=== PATIENT | female | born 1960 | race Caucasian/White ===

== ENCOUNTER 2016-08-26 15:59 | Emergency (ER) | payer OTHER ==
--- NOTE | ~2016-08-26 | EKG ---
PATIENT: CLARISA MEJIAS UNIT #: [id number] Ventricular Rate: 77 BPM Atrial Rate: 77 BPM P-R Interval: 182 ms QRS Duration: 100 ms Q-T Interval: 406 ms QTC Calculation(Bezet): 459 ms P Whitmer: 62 degrees Calculated R Whitmer: 62 degrees Calculated T Whitmer: 61 degrees Diagnosis Line: Normal sinus rhythm Diagnosis Line: Normal ECG Diagnosis Line: When compared with ECG of 24-AUG-2015 11:29, Diagnosis Line: No significant change was found Diagnosis Line: Confirmed by MIKA CLINE MD ([id number]) on 08/27/2016 Diagnosis Line: 7:20:15 AM INTERPRETING MD: SON CASTRO
--- NOTE | ~2016-08-26 | CR72 ---
[facility] A Service of [facility] RADIOLOGY TEXT RESULTS PATIENT: CLARISA MEJIAS LOCATION: [facility] : 64 UNIT #: [id number] AGE: [address]: Sandro Bear MD SEX: F ORDER DR: [id number] [facility] [address] [place], [place] [address] [id number] MR#: [id number] Acc #: [id number] NAME: CLARISA MEJIAS : 1960 SEX: F STUDY DATE/TIME: 08/26/2016 15:16 UNIT: [facility] ROOM: STUDY DESCRIPTION: CR Chest Single View Portable Attending Physician: Sandro Bear M.D. Ordering Physician: Sandro Bear M.D. Primary Care Physician: Generic Doctor Not In System MEDICAL IMAGING REPORT This report is preliminary unless electronic signature is present EXAM Single view of the chest dated 08/26/2016 at 1516 hours COMPARISON None. HISTORY Alcohol withdrawal, mild congestion today. Patient is somewhat incoherent. FINDINGS A single AP portable view of the chest shows both lungs to be clear. The heart is normal in size. The mediastinal contour is normal. No significant bone abnormalities are seen. IMPRESSION Normal portable chest. Dictated by... Flynn Soliman M.D. THIS IS AN ELECTRONICALLY VERIFIED REPORT Flynn Soliman M.D. at 08/28/2016 1:40 PM CPR/mjs TD: 08/27/2016 10:06 JOB #: [id number] MEDICAL IMAGING REPORT Page 1 of 1 COPY
[2016-08-26 15:28] LABS: POC - CKMB <1.0 ng/mL (0.0-7.9); POC - TROPONIN <0.05 ng/mL (<=0.05)
[2016-08-26 15:32] LABS: BASOPHIL% 0.8 % (0-2.5); EOSINOPHIL# 0.1 X10e3 (0-0.7); EOSINOPHIL% 2.4 % (0.0-7.0); HEMATOCRIT 39.7 % (35.0-45.0); HEMOGLOBIN 13.4 gm/dL (12.0-16.0); LYMPHOCYTE# 1.6 X10e3 (1.0-3.5); LYMPHOCYTE% 38.9 % (17.0-45.0); MEAN CELL VOLUME 95.9 FL (83-96); MEAN CORPUSCULAR HEMOGLOBIN 32.4 PG (28-34); MEAN CORPUSCULAR HGB CONC 33.7 g/dL (30-36); MEAN PLATELET VOLUME 7.5 FL (6.5-11.5); MONOCYTE# 0.2 X10e3 (0-1.0); MONOCYTE% 5.6 % (3.0-12.0); NEUTROPHIL# 2.1 X10e3 (1.5-7.1); NEUTROPHIL% 52.3 % (40-75); PLATELET COUNT 245 X10e3 (140-420); RED BLOOD COUNT 4.14 X10e (3.90-5.30); RED CELL DISTRIBUTION WIDTH 15.8 % (11.0-15.5); WHITE BLOOD COUNT 4.1 X10e3 (4.0-10.5)
[2016-08-26 15:33] LABS: DIFF IND NO
[2016-08-26 16:06] LABS: ALBUMIN SERUM 4.7 g/dL (3.5-5.0); ALKALINE PHOSPHATASE 72 U/L (32-92); ALT (SGPT) 24 U/L (10-40); AST (SGOT) 39 U/L (10-42); BILIRUBIN, DIRECT 0.1 mg/dL (0.0-0.2); BILIRUBIN,TOTAL 1.1 mg/dL (0.2-2.0); BLOOD UREA NITROGEN 8 mg/dL (9-23); CALCIUM SERUM 9.4 mg/dL (8.4-10.2); CARBON DIOXIDE 22 mmol/L (22-31); CHLORIDE 97 mmol/L (100-111); CREATININE SERUM 0.4 mg/dL (0.6-1.4); GLOM FILT RATE Estimated 118.9 mL/min (>60); GLUCOSE FASTING 86 mg/dL (70-110); POTASSIUM 3.8 mmol/L (3.5-5.1); SALICYLATE <4.0 mg/dL; SODIUM 133 mmol/L (135-145)
[2016-08-26 16:08] LABS: ACETAMINOPHEN <10 ug/mL
[2016-08-26 16:10] LABS: ALCOHOL BLOOD 360 mg/dL (0)
[2016-08-26 16:25] LABS: AMPHETAMINE NEG (NEG); BARBITURATES NEG (NEG); BENZODIAZEPINES NEG (NEG); COCAINE NEG (NEG); MARIJUANA NEG (NEG); OPIATES NEG (NEG); TRICYCLIC ANTIDEPRESSANTS NEG (NEG); U METHADONE NEG (NEG)
== END 2016-08-26 16:07 | disposition home or self-care (01) ==
LOC: CED 15:59
PROVIDERS: Emergency Medicine
DX: F10.20 Alcohol dependence, uncomplicated (principal); Y90.8 Blood alcohol level of 240 mg/100 ml or more
CPT/HCPCS: 36415; 71010; 80048; 80076; 80307; 82553; 84484; 84703; 85025; 93005; 99283; G0480; J3411; J3475

== ENCOUNTER 2016-11-30 13:00 | Inpatient (IN) | payer OTHER ==
[~2016-11-30] VITALS: Ht 167.6 cm; Wt 56.7 kg
--- NOTE | ~2016-11-30 | PA ---
Unit #: [id number] #: [id number] Patient: CLARISA MEJIAS [id number] [place] [address] [id number] MR#: [id number] NAME: CLARISA MEJIAS ROOM: P212 Age: 56 Sex: F Admission Date: 11/30/2016 : 1960 Date of Assessment: 12/01/2016 Attending Physician: Ajit Ballard M.D. Admitting Physician: Ajit Ballard M.D. Primary Care Physician: Nereida Ames M.D. PSYCHIATRIC ASSESSMENT IDENTIFYING INFORMATION The patient is a 55-year-old white female admitted to the [address] [place] [address] with recurrent abuse of alcohol. INFORMANT(S) Patient. RELIABILITY Good. CHIEF COMPLAINT None given. HISTORY OF PRESENT ILLNESS The patient is a 55-year-old white female with a recent relapse of alcohol use. The patient reports that relationship problems were the precipitant to her relapse. She has been off of her medications at present times. These have included Celexa, Campral, ReVia and Vistaril. The patient is today exhibited elevation of pulse and blood pressure consistent with alcohol withdrawal. She was reporting hopelessness and suicidal ideation at the time of admission. She has a history of seizure withdrawal and DTs per her report. She currently denies suicidal ideation. PAST PSYCHIATRIC HISTORY Reviewed, no changes. FAMILY HISTORY/SOCIAL HISTORY Reviewed, no changes. MEDICAL HISTORY Reviewed, no changes. MEDICATION HISTORY 1. Celexa. 2. Trileptal. 3. Campral. 4. ReVia. 5. Vistaril. 6. Neurontin. ALLERGIES None reported. Unit #: [id number] #: [id number] Patient: CLARISA MEJIAS MENTAL STATUS EXAM At this time, reveals the patient to be a well-developed, well-nourished white female appearing her stated age. She is in no apparent physical distress at time of examination. She is awake, alert, oriented in all spheres. Her mood is dysphoric. Her affect constricted. Speech is generally relevant and coherent. There are no gross deficits in memory or cognition noted. Intelligence is judged to be in the average range based on fund of knowledge. The patient is cooperative throughout the interview. She denies current suicidal/homicidal ideation or psychotic features. Judgement and insight appear to be intact. ASSETS AND LIABILITIES Patient's assets, motivation for change. Liabilities, lack of resources. ADMITTING DIAGNOSES 1. Alcohol use disorder. 2. Dysthymic disorder. PSYCHIATRIC PLAN/TREATMENT GOALS The patient remains hospitalized for safety and stabilization. All previously prescribed medications will be reinitiated. The patient will participate in appropriate morin and milieu activities. ESTIMATED LENGTH OF STAY Five to seven days. Dictated by... Ajit Ballard M.D. JAI/tessa TD: 12/01/2016 18:06 JOB #: [id number] PSYCHIATRIC ASSESSMENT Page 1 of 1 X Ajit Ballard MD X PSYCHIATRIC ASSESSMENT
--- NOTE | ~2016-11-30 | DS ---
Unit #: [id number] #: [id number] Patient: CLARISA MEJIAS [id number] [place] [address] [id number] I MR#: [id number] NAME: CLARISA MEJIAS ROOM: P212 Age: 56 Sex: F Admission Date: 11/30/2016 : 1960 Discharge Date: 12/03/2016 Attending Physician: Ajit Ballard M.D. Primary Care Physician: Nereida Ames M.D. DISCHARGE SUMMARY REASON FOR ADMISSION The patient is a 56-year-old white female, admitted to the [address] [place] [address] for alcohol detox. HOSPITAL COURSE The patient was admitted to the [address] [place] [address] unit and restarted on home medications. She requested reinitiation of Vivitrol, but this medication could not be initiated in the hospital, but will be initiated as an outpatient. The patient's detox was an uneventful one and by 12/03/2016, she requested discharge and it was so ordered. FINAL DIAGNOSES Dysthymic disorder, alcohol use disorder, hypertension. DISPOSITION ON DISCHARGE The patient is discharged on the following medications: Desyrel 50 mg at bedtime p.r.n. insomnia, Vistaril 50 mg q.6 hours p.r.n. anxiety, Campral 666 mg t.i.d. for alcohol craving, oxcarbazepine 300 mg b.i.d. for mood stabilization, citalopram 40 mg daily for depression, Vivitrol 380 mg intramuscularly monthly for alcohol craving. Prescriptions are provided for these medications. The patient will also continue on Neurontin 600 mg t.i.d. daily, but this physician will not prescribe this medication for the patient. The patient will follow up through the auspices of community mental health resources and the chemical dependency intensive outpatient program provided by this facility. PROGNOSIS Her prognosis is considered fair. Dictated by... Ajit Ballard M.D. JAI/della TD: 12/03/2016 13:51 JOB #: [id number] Unit #: [id number] #: [id number] Patient: CLARISA MEJIAS DISCHARGE SUMMARY Page 1 of 1 X Ajit Ballard MD DISCHARGE SUMMARY
--- NOTE | ~2016-11-30 | PN ---
Unit #: [id number] #: [id number] Patient: CLARISA MEJIAS [id number] [facility] [address] [place] [address] [id number] MR#: [id number] NAME: CLARISA MEJIAS ROOM: P212 Age: 56 Sex: F Admission Date: 11/30/2016 : 1960 Attending Physician: Ajit Ballard M.D. Admitting Physician: Ajit Ballard M.D. Primary Care Physician: Mehdi Bernal PROGRESS NOTES DATE 12/02/2016 DISCUSSION The patient's detox continues uneventfully. She is requesting initiation of the Vivitrol injection, and it will be so ordered. Discharge to take place by Sunday. Dictated by... Ajit Ballard M.D. JAI/shweta TD: 12/02/2016 13:05 JOB #: [id number] [facility] PROGRESS NOTES Page 1 of 1 X Ajit Ballard MD PROGRESS NOTE
--- NOTE | ~2016-11-30 | HP ---
Unit #: [id number] #: [id number] Patient: CLARISA MEJIAS [id number] [place] [address] [id number] I MR#: [id number] NAME: CLARISA MEJIAS ROOM: P212 Age: 56 Sex: F Admission Date: 11/30/2016 : 1960 Attending Physician: Ajit Ballard M.D. Admitting Physician: Ajit Ballard M.D. Primary Care Physician: Nereida Ames M.D. HISTORY AND PHYSICAL HISTORY OF PRESENT ILLNESS Clarisa is a 56-year-old female admitted on 11/30/[address] [place] [address] for detox from alcohol. PAST MEDICAL HISTORY 1. Withdrawal seizures. 2. Kidney stones. PAST SURGICAL HISTORY 1. section x1. 2. Lithotripsy. ALLERGIES No known drug allergies. SOCIAL HISTORY She is currently single and living with her boyfriend. She denies tobacco use. Does report drinking six 24 ounce beers daily and occasional marijuana use. FAMILY HISTORY Noncontributory. REVIEW OF SYSTEMS CONSTITUTIONAL: No fever or chills. HEENT: Denies any sore throat, ear pain or runny nose. CARDIOVASCULAR: Denies chest pain, irregular heart rhythm or palpitations. CHEST: Denies shortness of breath or cough. No hemoptysis. GASTROINTESTINAL: Denies nausea, vomiting, diarrhea or chronic constipation. ENDOCRINE: Denies history of increased thirst or urination. No recent significant weight loss or gain. GENITOURINARY: Denies dysuria, frequency, or hematuria. SKIN: Denies any rashes. HEMATOLOGIC: Denies history of increased bleeding or bruising. MUSCULOSKELETAL: Denies any hot, swollen joints. No generalized muscle pain. NEUROLOGIC: Denies problems with vision or speech. No frequent, severe headaches. No numbness, tingling or weakness in any extremities. Denies loss of bladder or bowel control. CURRENT MEDICATIONS 1. Trileptal. Unit #: [id number] #: [id number] Patient: CLARISA MEJIAS 2. Campral. 3. Vistaril. 4. ReVia. 5. Neurontin. PHYSICAL EXAMINATION GENERAL: Alert, oriented, in no acute distress. VITAL SIGNS: Blood pressure 172/102, heart rate 81. HEIGHT: 5 feet 4. WEIGHT: 125 pounds. SKIN: Warm and dry without rash or lesion. HEENT: Normocephalic. TMs not viewed. Oral and nasal passages clear. Conjunctivae clear. PERRLA. EOMs intact. NECK: Supple without lymphadenopathy or thyromegaly. HEART: Regular rate and rhythm without murmur. LUNGS: Clear. ABDOMEN: Soft, nontender, without masses or hepatosplenomegaly. : Not done. EXTREMITIES: No evidence of cyanosis, clubbing or edema. Moves all without focal deficit. NEUROLOGICAL: Grossly within normal limits. Cranial Nerves: II: Visual zavala are intact. III, IV AND : Extraocular movements are intact. Pupils are equal, round and reactive to light. V: Facial sensation is grossly normal. VII: Facial movements and expression are normal. VIII: Auditory acuity grossly intact. IX, X: Uvula is midline. Phonation is normal. XI: Patient shrugs shoulders and turns head normally. XII: Tongue protrudes in the midline. Sensory and Motor Function: Sensory and motor sensation is grossly normal. Motor: moves all extremities well. Coordination: Gait is normal. Deep Tendon Reflexes: Intact. IMPRESSION 1. Psychiatric admission. 2. Withdrawal seizures. 3. Kidney stones. RECOMMENDATIONS PSYCHIATRIC: Per psychiatrist. MEDICAL: No contraindication to participate in facility's activities. MEDICAL PROGNOSIS Good. MEDICAL CONDITION Stable. Dictated by... Brit Rutledge/tessa TD: 11/30/2016 22:52 JOB #: [id number] Unit #: [id number] #: [id number] Patient: CLARISA MEJIAS HISTORY AND PHYSICAL Page 1 of 1 X KARINA COLLINS APRN X HISTORY AND PHYSICAL
[2016-12-01 12:33] LABS: BASOPHIL% 0.4 % (0-2.5); EOSINOPHIL# 0.1 X10e3 (0-0.7); EOSINOPHIL% 1.7 % (0.0-7.0); HEMATOCRIT 37.4 % (35.0-45.0); HEMOGLOBIN 12.3 gm/dL (12.0-16.0); LYMPHOCYTE# 0.6 X10e3 (1.0-3.5); LYMPHOCYTE% 11.4 % (17.0-45.0); MEAN CELL VOLUME 100.1 FL (83-96); MEAN CORPUSCULAR HEMOGLOBIN 32.9 PG (28-34); MEAN CORPUSCULAR HGB CONC 32.9 g/dL (30-36); MEAN PLATELET VOLUME 8.2 FL (6.5-11.5); MONOCYTE# 0.7 X10e3 (0-1.0); NEUTROPHIL# 3.9 X10e3 (1.5-7.1); NEUTROPHIL% 73.5 % (40-75); PLATELET COUNT 159 X10e3 (140-420); RED BLOOD COUNT 3.73 X10e (3.90-5.30); RED CELL DISTRIBUTION WIDTH 13.2 % (11.0-15.5); WHITE BLOOD COUNT 5.3 X10e3 (4.0-10.5)
[2016-12-01 12:36] LABS: DIFF IND NO
[2016-12-01 12:57] LABS: BILIRUBIN,TOTAL 1.1 mg/dL (0.2-2.0); BUN/CREATININE RATIO 18.57; CALCIUM SERUM 9.6 mg/dL (8.4-10.2); CREATININE SERUM 0.7 mg/dL (0.6-1.4); GLOM FILT RATE Estimated 98.2 mL/min (>60); POTASSIUM 4.3 mmol/L (3.5-5.1); PROTEIN TOTAL SERUM 6.5 g/dL (6.0-8.3)
== END 2016-12-03 14:15 | disposition home or self-care (01) | DRG 897 ==
LOC: P2S 14:34 → POF 12-01 17:07 → P2S 12-01 17:08
PROVIDERS: Specialist
PROC: HZ2ZZZZ Detoxification Services for Substance Abuse Treatment (ICD-10-PCS; principal; 2016-11-30)
DX: F10.20 Alcohol dependence, uncomplicated (principal); F10.239 Alcohol dependence with withdrawal, unspecified; G40.89 Other seizures; F34.1 Dysthymic disorder; N20.0 Calculus of kidney; I10 Essential (primary) hypertension
CPT/HCPCS: 80053; 84703; 85025; 86592